=== PATIENT | female | born 1970 | race Caucasian/White ===

== ENCOUNTER 2024-08-15 16:31 | Emergency (ER) | payer MEDICAID ==
[~2024-08-15] VITALS: Ht 152.4 cm; Wt 86.0 kg
[2024-08-15 16:53] VITALS: O2SAT 99
[2024-08-15] MEDS: KETOROLAC 15MG/ML VIAL IV ONE (17:34)
[2024-08-15 17:46] LABS: BASOPHILS % 0.6 % (0.0-2.0); HEMATOCRIT. 46.5 % (36.0-48.0); HEMOGLOBIN. 15.5 g/dL (12.0-16.0); LYMPHOCYTES % 39.1 % (20.0-50.0); MEAN CORPUSCULAR HGB CONC 33.5 g/dL (31.0-37.0); MEAN CORPUSCULAR VOLUME 89.8 fL (81.0-99.0); MONOCYTES % 6.2 % (2.0-8.0); NEUTROPHILS % 53.1 % (40.0-76.0); PLATELET 331 x1000/uL (130-400); RED BLOOD CELL COUNT 5.18 mill/uL (4.2-5.4); RED CELL DISTRIBUTION WIDTH 15.4 % (11.6-14.6); WHITE BLOOD COUNT 13.2 x1000/uL (4.5-11.0)
[2024-08-15 17:47] LABS: CHLORIDE 100 mEq/L (98-107); POTASSIUM 3.4 mEq/L (3.5-5.1); SODIUM 137 mEq/L (136-145)
[2024-08-15 17:48] LABS: CALCIUM 10.4 mg/dL (8.7-10.4); CARBON DIOXIDE 30 mEq/L (21-32)
[2024-08-15 17:53] LABS: CREATININE 1.1 mg/dL (0.6-1.0); D-DIMER < 0.19 mg/L FEU (<0.50); GLUCOSE 105 mg/dL (70-105); PARTIAL THROMBOPLASTIN TIME 27.6 sec (23.4-31.0); PROTHROMBIN TIME 11.1 sec (9.6-11.0); UREA NITROGEN BLOOD 21 mg/dL (9-23)
[2024-08-15 17:54] LABS: TROPONIN I HIGH SENSITIVITY 6 ng/L (3.0-34)
[2024-08-15 17:58] LABS: HCG SCREEN NEGATIVE
[2024-08-15 21:09] LABS: TROPONIN I HIGH SENSITIVITY 5 ng/L (3.0-34)
[2024-08-15] MEDS ORDERED: NAPR-677 MT (21:31)
[2024-08-15 23:21] VITALS: BP 121/69; PULSE 69; RESP 17; TEMP 36.83628; O2SAT 96
== END 2024-08-15 23:26 | disposition home or self-care (01) ==
LOC: ER 16:31
DX: R09.1 Pleurisy (principal); R07.89 Other chest pain
CPT/HCPCS: 99285; 96374; 71045; 80048; 84703; 85025; 85379; 85610; 85730; 84484; 36415; 93005; J1885